=== PATIENT | male | born 1970 | race Caucasian/White ===

== ENCOUNTER 2021-02-17 05:34 | Day surgery (SDC) | payer BC ==
[2021-02-15 11:14] VITALS: BMI 33.0
[2021-02-17] MEDS ORDERED: Fentanyl 100 MCG/2 ML VIAL ONE (06:43)
[2021-02-17] MEDS ORDERED: Midazolam HCl 2 mg/2 ml Vial ONE (06:43)
[2021-02-17] MEDS ORDERED: HYDROmorphone 0.5 MG/0.5 ML SYRINGE ONE (06:44)
[2021-02-17] MEDS ORDERED: Levofloxacin 500 mg/D5W 100 ml Premix Bag ONE (07:07)
[2021-02-17] MEDS ORDERED: Lidocaine 1% w/Epinephrine 1:100K 20 ML VIAL ONE (07:08)
[2021-02-17] MEDS ORDERED: Bupivacaine 0.25% HCL 30 ML VIAL ONE (07:08)
[2021-02-17] MEDS ORDERED: Rocuronium Bromide 10 MG/ML (10ML VIAL) ONE (07:34)
[2021-02-17] MEDS ORDERED: Ondansetron PF 4 MG/2 ML Vial ONE (07:34)
[2021-02-17] MEDS ORDERED: Dexamethasone 20 MG/5 ML VIAL ONE (07:34)
[2021-02-17] MEDS ORDERED: Lidocaine 1% PF 5 ML VIAL ONE (07:34)
[2021-02-17] MEDS ORDERED: PROPOFOL 200 MG/20 ML VIAL ONE (07:34)
[2021-02-17] MEDS ORDERED: PHENYLEPHRINE-NS 100 MCG/ML 10 ML SYRINGE ONE (07:34)
[2021-02-17] MEDS ORDERED: Glycopyrrolate 0.2 MG/ML 5 ML SYRINGE ONE (07:34)
[2021-02-17] MEDS ORDERED: hydrALAZINE 20 MG/ML VIAL ONE (09:04)
== END 2021-02-17 10:20 | disposition home or self-care (01) ==
LOC: SDC 05:34
PROVIDERS: ATTEND Surgery
PROC: 0WUF0JZ Supplement Abdominal Wall with Synthetic Substitute, Open Approach (ICD-10-PCS; principal; 2021-02-17)
DX: K42.9 Umbilical hernia without obstruction or gangrene (principal); Z88.0 Allergy status to penicillin; Z79.899 Other long term (current) drug therapy
CPT/HCPCS: 93005; 93010; C1781; J0360; J1100; J1170; J1956; J2250; J2405; J2704; J3010; S0020

== ENCOUNTER 2024-05-07 09:57 | Observation (INO) | payer BC ==
[2024-05-07 10:38] LABS: #Basophils 0.04 10x3/uL (0.0-0.2); %Basophils 0.7 % (0.0-1.0); %Eosinophils 5.8 % (0.0-10.0); %Lymphocytes 20.5 % (21.0-51.0); %Neutrophils 64.6 % (42.0-75.0); Hemoglobin 12.3 g/dL (14.0-18.0); Mean Corpuscular HGB CONC 29.3 g/dL (32.0-36.0); Mean Corpuscular Hemoglobin 20.6 pg (27.0-31.0); Mean Corpuscular Volume 70.2 fL (78.0-98.0); Mean Platelet Volume 9.5 fL (7.4-10.4); Platelet Count 326 10x3/uL (130-400); RBC Distribution Width 20.3 % (11.5-14.5); Red Blood Cell (RBC) Count 5.98 mill/uL (4.70-6.10)
[2024-05-07] MEDS ORDERED: Acetaminophen 500 MG TAB ONE (10:42)
[2024-05-07] MEDS ORDERED: Aspirin Chewable 81 MG TAB ONE (10:42)
[2024-05-07 10:56] LABS: ALT (SGPT) 56 U/L (8-55); AST (SGOT) 35 U/L (5-34); Albumin 3.9 g/dL (3.5-5.0); Alkaline Phosphatase 89 U/L (40-110); Anion Gap 13 mmol/L (10-20); BUN (Urea Nitrogen) 26 mg/dL (8.4-25.7); Bilirubin, Total 0.3 mg/dL (0.2-1.2); Calc. Creatinine Clearance 0 mL/min (70-130); Calcium 9.5 mg/dL (7.8-10.44); Carbon Dioxide 23 mmol/L (22-29); Chloride 107 mmol/L (98-107); Estimated GFR 96; Glucose 130 mg/dL (70-105); Potassium 3.9 mmol/L (3.5-5.1); Protein, Total 6.9 g/dL (6.0-8.3); Sodium 139 mmol/L (136-145); Troponin I Less than 0.010 ng/mL (< 0.028)
[2024-05-07 12:31] VITALS: BMI 31.6
[2024-05-07 14:20] LABS: Anisocytosis MODERATE=16-30 cells HPF (0-5); Burr Cells SLIGHT = 2-5 cells HPF (0-1); Microcytosis SLIGHT = 6-15 cells HPF (0-5); Ovalocytes SLIGHT = 2-5 cells HPF (0-1); Platelet Adequacy Comment Platelets Normal; Polychromasia SLIGHT = 2-3 cells HPF (0-2); Target Cells SLIGHT = 2-5 cells HPF (0-1)
[2024-05-07] MEDS ORDERED: Nitroglycerin 0.4 MG TAB (25 Tab Bottle) SL PRN (14:42)
[2024-05-07 14:55] LABS: Troponin I Less than 0.010 ng/mL (< 0.028)
[2024-05-07 17:36] LABS: Troponin I Less than 0.010 ng/mL (< 0.028)
[2024-05-07] MEDS: NIFEdipine XL 30 MG ER.TAB PO SCH (18:32)
[2024-05-07 19:40] LABS: Hemoglobin A1c 5.6 % (4.0-6.0)
[2024-05-07] MEDS: Famotidine 20 MG TAB PO SCH (20:34)
[2024-05-07 23:23] LABS: A1c 116.052 g/dL; Hb (HGBA1c) 3043.0022 umol/L
[2024-05-07 23:38] VITALS: TEMP 97.8
[2024-05-07] MEDS: Acetaminophen 325 MG TAB PO PRN (23:47)
[2024-05-08 05:44] LABS: #Basophils 0.03 10x3/uL (0.0-0.2); %Basophils 0.6 % (0.0-1.0); %Eosinophils 5.4 % (0.0-10.0); %Lymphocytes 21.5 % (21.0-51.0); %Monocytes 9.3 % (0.0-10.0); Hematocrit 38.4 % (42.0-52.0); Hemoglobin 11.3 g/dL (14.0-18.0); Mean Corpuscular HGB CONC 29.4 g/dL (32.0-36.0); Mean Corpuscular Hemoglobin 20.4 pg (27.0-31.0); Mean Corpuscular Volume 69.2 fL (78.0-98.0); Mean Platelet Volume 9.7 fL (7.4-10.4); Platelet Count 292 10x3/uL (130-400); RBC Distribution Width 20.1 % (11.5-14.5); Red Blood Cell (RBC) Count 5.55 mill/uL (4.70-6.10)
[2024-05-08 05:47] LABS: Anion Gap 13 mmol/L (10-20); BUN (Urea Nitrogen) 18 mg/dL (8.4-25.7); Calc. Creatinine Clearance 158 mL/min (70-130); Carbon Dioxide 25 mmol/L (22-29); Cardiac Risk 6.3 (Less than 4.5); Chloride 106 mmol/L (98-107); Cholesterol 169 mg/dl (< 200 Desired); Estimated GFR 105; Glucose 99 mg/dL (70-105); HDL Cholesterol 27 mg/dL (>60 Neg Risk); LDL Cholesterol, Calculated 107 mg/dL; Potassium 3.6 mmol/L (3.5-5.1); Sodium 140 mmol/L (136-145); Triglycerides 174 mg/dL (Less than 150)
[2024-05-08 06:33] LABS: Microcytosis SLIGHT = 6-15 cells HPF (0-5); Platelet Adequacy Comment Platelets Normal; Polychromasia SLIGHT = 2-3 cells HPF (0-2)
[2024-05-08] MEDS: Losartan 25 MG TAB PO SCH (07:54)
[2024-05-08] MEDS: NIFEdipine XL 30 MG ER.TAB PO SCH (07:55)
[2024-05-08] MEDS: Aspirin Chewable 81 MG TAB PO SCH (07:55)
[2024-05-08] MEDS ORDERED: Non-Formulary Item 1 EACH (Losartan Potassium [Losartan Potassium] 100 MG Tablet) PO SCH (09:00)
[2024-05-08] MEDS ORDERED: Regadenoson 0.4 MG/5 ML SYRINGE ONE (09:17)
[2024-05-08 15:58] VITALS: BP 135/77
== END 2024-05-08 18:07 | disposition home or self-care (01) ==
LOC: ERS 09:57 → ERHOLD 11:38 → OBS 15:42
PROVIDERS: ADMIT Internal Medicine; ATTEND Hospitalist
PROC: B24BZZZ Ultrasonography of Heart with Aorta (ICD-10-PCS; principal; 2024-05-08)
DX: R07.89 Other chest pain (principal); I10 Essential (primary) hypertension; D50.9 Iron deficiency anemia, unspecified; Z88.0 Allergy status to penicillin; Z79.82 Long term (current) use of aspirin; Z79.899 Other long term (current) drug therapy
CPT/HCPCS: 36415; 71046; 78452; 80048; 80053; 80061; 83036; 84484; 85025; 85379; 86850; 86900; 86901; 93005; 93017; 93306; 94760; A9502; G0378; J2785